=== PATIENT | female | born 1950 | race Caucasian/White ===

== ENCOUNTER → 2017-03-30 | Outpatient (CLI) | payer MEDICARE, BC ==
--- NOTE | 2017-03-31 09:18 | RADIOLOGY REPORT (SQ) ---
EXAM DESCRIPTION: MRI RT LOWER JOINT WITHOUT COMPLETED DATE/TIME: 03/30/2017 7:42 pm REASON FOR STUDY: PAIN IN RIGHT KNEE M25.561 PAIN IN RIGHT KNEE COMPARISON: None TECHNIQUE: Rightknee images acquired and stored on PACS. Multiplanar images include fat sensitive s equences as T1, water sensitive sequences as FST2 or STIR, cartilage sensitive sequences as FSPD, and gradient echo sequences. LIMITATIONS: None. FINDINGS: JOINT AND BURSAE: Joint effusion. No popliteal cyst. BONE CORTEX AND MARROW: No alteration of signal to suggest marrow replacement. No worrisome bone lesi ons. No occult fracture. ACL: Intact. No degeneration or ganglion cyst. PCL: Intact. MCL: Periligamentous edema. No discrete tear. LCL: Intact. No periligamentous edema or fluid. MEDIAL MENISCUS: Extensive grade 2 signal through the meniscus without a discrete tear. LATERAL MENISCUS: Flap tear with generalize horizontal tear. MEDIAL COMPARTMENT: Cartilage preserved. No bone bruises or reactive marrow edema. No osteophytes. LATERAL COMPARTMENT: Cartilage preserved. No bone bruises or reactive marrow edema. No osteophytes. PATELLA: No chondromalacia. No subchondral cysts. Medial and lateral retinacula intact. EXTENSOR MECHANISM: Intact. Quadriceps and patella tendons normal. SOFT TISSUES: Mild prepatellar edema. Normal flow void in popliteal artery and vein. OTHER: No other significant finding. IMPRESSION: Flap tear extending to horizontal tear of the lateral meniscus. Joint effusion. Prepatellar edema. TECHNICAL DOCUMENTATION: JOB ID: [id number] [employer]- All Rights Reserved
== END ==
LOC: RAD 18:36
PROVIDERS: ATTEND Orthopaedic Surgery Sports Medicine
DX: M25.561 Pain in right knee (principal)

== ENCOUNTER → 2017-04-12 | Outpatient (CLI) | payer MEDICARE, BC ==
[2017-04-12 15:12] LABS: HEMATOCRIT 33.9 % (36.0-47.0); HEMOGLOBIN 11.6 g/dL (12.0-15.5); HGB HCT DIFFERENCE 0.9; MEAN CORPUSCULAR HEMOGLOBIN 31.3 pg (27.0-33.4); MEAN CORPUSCULAR HGB CONC 34.3 g/dL (32.0-36.0); MEAN CORPUSCULAR VOLUME 91 fl (80-97); RED BLOOD COUNT 3.72 10^6/uL (3.72-5.28); RED CELL DISTRIBUTION WIDTH 13.6 % (11.5-14.0); WHITE BLOOD COUNT 6.3 10^3/uL (4.0-10.5)
[2017-04-12 15:36] LABS: ALANINE AMINOTRANSFERASE 32 U/L (9-52); ALBUMIN 3.9 g/dL (3.5-5.0); ALKALINE PHOSPHATASE 55 U/L (38-126); ANION GAP 11 (5-19); ASPARTATE AMINO TRANSFERASE 22 U/L (14-36); BILIRUBIN,DIRECT 0.4 mg/dL (0.0-0.4); BILIRUBIN,TOTAL 0.7 mg/dL (0.2-1.3); BLOOD UREA NITROGEN 16 mg/dL (7-20); CARBON DIOXIDE 29 mmol/L (22-30); CHLORIDE 104 mmol/L (98-107); CREATININE RESULT 0.92 mg/dL (0.52-1.25); GLUCOSE 124 mg/dL (75-110); POTASSIUM 4.6 mmol/L (3.6-5.0); SODIUM 143.7 mmol/L (137-145); TOTAL PROTEIN 6.6 g/dL (6.3-8.2)
== END ==
LOC: OD 13:53
PROVIDERS: ATTEND Orthopaedic Surgery Sports Medicine
DX: I10 Essential (primary) hypertension (principal); Z11.2 Encounter for screening for other bacterial diseases
CPT/HCPCS: 36415; 80053; 85027; 87070

== ENCOUNTER → 2019-03-22 | Outpatient (CLI) | payer MEDICARE, BC ==
--- NOTE | 2019-03-22 17:00 | RADIOLOGY REPORT (SQ) ---
EXAM DESCRIPTION: CT RT UPPER EXTREMITY WITHOUT COMPLETED DATE/TIME: 03/22/2019 4:37 pm REASON FOR STUDY: M25.511 PAIN IN RIGHT SHOULDER M25.511 PAIN IN RIGHT SHOULDER COMPARISON: None. TECHNIQUE: CT scan of the right shoulder performed without intravenous or oral contrast. Images rev iewed with soft tissue and bone windows. Reconstructed coronal and sagittal MPR images reviewed. Al l images stored on PACS. Additional 3D shaded surface display renderings of the right shoulder were generated on an [employer] workstation. All CT scanners at this facility use dose modulation, iterative reconstruction, and/or weight based d osing when appropriate to reduce radiation dose to as low as reasonably achievable (ALARA). [facility]: Dose Right [facility]: CareDose [facility]: Dose Right [facility]: Teradose 4D [facility]: [employer] RADIATION DOSE: CT Rad equipment meets quality standard of care and radiation dose reduction techniq ues were employed. CTDIvol: 19.6 mGy. DLP: 483 mGy-cm. mGy. LIMITATIONS: None. FINDINGS: Normal bone density. No lytic or blastic lesions. No fractures. Type 1 acromion with minimal acromioclavicular joint hypertrophy. No narrowing of the subacromial sp ramona. Normal thickness of the rotator cuff on sagittal reconstruction images 9 through 19. No rotator cuff muscle atrophy. No axillary adenopathy. Right upper lobe, right ribs unremarkable. 3D shaded surface display imaging yields no additional findings. There is mild to moderate foraminal narrowing in the cervical spine at the edge of the field of view at C5-6 and C6-7. IMPRESSION: No significant findings in the right shoulder. Lower cervical spine foraminal stenosis at the edge of the field of view. TECHNICAL DOCUMENTATION: JOB ID: [id number] Quality ID # 436: Final reports with documentation of one or more dose reduction techniques (e.g., Au tomated exposure control, adjustment of the mA and/or kV according to patient size, use of iterative reconstruction technique) 2010 [employer]- All Rights Reserved Reading location - IP/workstation name: [email or web address]
== END ==
LOC: RAD 15:28
PROVIDERS: ATTEND Physician Assistant
DX: M25.511 Pain in right shoulder (principal); M48.02 Spinal stenosis, cervical region

== ENCOUNTER → 2019-11-16 | Day surgery (SDC) | payer MEDICARE, BC ==
--- NOTE | 2019-11-16 15:53 | RADIOLOGY REPORT (SQ) ---
EXAM DESCRIPTION: CT RT UPPER EXTREMITY WITH IMAGES COMPLETED DATE/TIME: 11/16/2019 3:06 pm REASON FOR STUDY: M25.511 PAIN IN RIGHT SHOULDER M25.511 PAIN IN RIGHT SHOULDER COMPARISON: None. TECHNIQUE: Axial imaging performed through the rightshoulder with reformatted oblique coronal and ob lique sagittal imaging windowed for bone and soft tissues. All CT scanners at this facility use dose modulation, iterative reconstruction, and/or weight based d osing when appropriate to reduce radiation dose to as low as reasonably achievable (ALARA). [facility]: Dose Right [facility]: CareDose [facility]: Dose Right [facility]: Teradose 4D [facility]: [employer] RADIATION DOSE: CT Rad equipment meets quality standard of care and radiation dose reduction techniq ues were employed. CTDIvol: 16.4 mGy. DLP: 441 mGy-cm. mGy. LIMITATIONS: None. FINDINGS: SOFT TISSUES: No axillary adenopathy. Mild areas of subsegmental atelectasis and scarring in the right lung but no nodules or masses detected. BONY ARCHITECTURE: No fracture or bone lesion. GLENOHUMERAL JOINT: Diffuse chondral thinning with some areas which may be focally full-thickness. T here are small subchondral cysts in the glenoid, particularly posteriorly and inferiorly. No bulky o steophytes. No subluxation or dislocation. ACROMION AND AC JOINT: Mild AC arthropathy. No subacromial compromise. ROTATOR CUFF: Irregular cuff tear with full-thickness component along insertion. Additional extravas ated contrast posteriorly related to posterior approach arthrography. No suggestion of atrophy in th e cuff muscles. GLENOID, LABRUM AND BICEPS: No overt superior labral tear or biceps disruption/ displacement. Remain ing labrum intact. OTHER: No other significant finding. IMPRESSION: 1. Full-thickness partial with insertional cuff tear. 2. No overt labral or biceps pathology. TECHNICAL DOCUMENTATION: JOB ID: [id number] Quality ID # [id number]: Final reports with documentation of one or more dose reduction techniques (e.g., Au tomated exposure control, adjustment of the mA and/or kV according to patient size, use of iterative reconstruction technique) 2010 [employer]- All Rights Reserved Reading location - IP/workstation name: [email or web address]
--- NOTE | 2019-11-16 16:09 | RADIOLOGY REPORT (SQ) ---
EXAM DESCRIPTION: ARTHRO SHOULDER INJECTION; FLUORO/NEEDLE PLACEMENT IMAGES COMPLETED DATE/TIME: 11/16/2019 3:04 pm REASON FOR STUDY: M25.511 PAIN IN RIGHT SHOULDER M25.511 PAIN IN RIGHT SHOULDER COMPARISON: None. FLUOROSCOPY TIME: FT: 0.2 minutes. 1 image saved to PACS. LIMITATIONS: None. PROCEDURE: Procedure, risks, benefits and alternative explained to patient who then gave written con sent. The right shoulder was marked and a time-out was called for correct marking verification. Pos terior entry site marked using fluoroscopic guidance. Shoulder prepped and draped using technical buyer nique. Local anesthesia achieved using 1% lidocaine injection. 22 gauge spinal needle introduced int o the joint space under direct fluoroscopic visualization. Non-ionic contrast instilled to confirm i ntra-articular position. Additional dilute non-ionic contrast instilled. Needle removed and entry s ite covered with sterile bandage. No immediate complications noted. TECHNIQUE: Digital images acquired during fluoroscopy and stored on PACS. Patient immediately take n to the CT suite for additional imaging. INJECTION LOCATION: Posterior right shoulder. CONTRAST TYPE AND AMOUNT: 12 mL Omnipaque 300 saline mixture. IMPRESSION: SUCCESSFUL NEEDLE PLACEMENT AND INJECTION FOR RIGHT SHOULDER CT ARTHROGRAM USING POSTERI OR APPROACH. COMMENT: Quality ID 145: Final reports for procedures using fluoroscopy that document radiation exp osure indices, or exposure time and number of fluorographic images (if radiation exposure indices are not available) TECHNICAL DOCUMENTATION: JOB ID: [id number] 2010 [employer]- All Rights Reserved Reading location - IP/workstation name: [email or web address] [id number]
--- NOTE | 2019-11-16 16:09 | RADIOLOGY REPORT (SQ) ---
EXAM DESCRIPTION: ARTHRO SHOULDER INJECTION; FLUORO/NEEDLE PLACEMENT IMAGES COMPLETED DATE/TIME: 11/16/2019 3:04 pm REASON FOR STUDY: M25.511 PAIN IN RIGHT SHOULDER M25.511 PAIN IN RIGHT SHOULDER COMPARISON: None. FLUOROSCOPY TIME: FT: 0.2 minutes. 1 image saved to PACS. LIMITATIONS: None. PROCEDURE: Procedure, risks, benefits and alternative explained to patient who then gave written con sent. The right shoulder was marked and a time-out was called for correct marking verification. Pos terior entry site marked using fluoroscopic guidance. Shoulder prepped and draped using appraisal technician nique. Local anesthesia achieved using 1% lidocaine injection. 22 gauge spinal needle introduced int o the joint space under direct fluoroscopic visualization. Non-ionic contrast instilled to confirm i ntra-articular position. Additional dilute non-ionic contrast instilled. Needle removed and entry s ite covered with sterile bandage. No immediate complications noted. TECHNIQUE: Digital images acquired during fluoroscopy and stored on PACS. Patient immediately take n to the CT suite for additional imaging. INJECTION LOCATION: Posterior right shoulder. CONTRAST TYPE AND AMOUNT: 12 mL Omnipaque 300 saline mixture. IMPRESSION: SUCCESSFUL NEEDLE PLACEMENT AND INJECTION FOR RIGHT SHOULDER CT ARTHROGRAM USING POSTERI OR APPROACH. COMMENT: Quality ID 145: Final reports for procedures using fluoroscopy that document radiation exp osure indices, or exposure time and number of fluorographic images (if radiation exposure indices are not available) TECHNICAL DOCUMENTATION: JOB ID: [id number] 2010 [employer]- All Rights Reserved Reading location - IP/workstation name: [email or web address] [id number]
== END ==
LOC: RAD 14:18
PROVIDERS: ATTEND Physician Assistant
DX: M25.511 Pain in right shoulder (principal)
CPT/HCPCS: 23350; 77002